=== PATIENT | female | born 1985 | race Asian ===

== ENCOUNTER 2020-12-18 10:58 | Outpatient (CLI) | payer BC | END 2020-12-18 10:59 | disposition home or self-care (01) | LOC: CSHULT 10:58 | PROVIDERS: ATTEND Family Medicine | DX: Z34.82 Encounter for supervision of other normal pregnancy, second trimester (principal) | CPT/HCPCS: 76805 ==

== ENCOUNTER 2021-04-15 23:39 | Inpatient (IN) | payer BC ==
[2021-04-16] MEDS ORDERED: Morphine 4 MG/ML VIAL SLOW IVP PRN (01:08)
[2021-04-16] MEDS ORDERED: hydrALAZINE 20 MG/ML VIAL SLOW IVP PRN ×3 (01:08→19:16)
[2021-04-16 01:31] VITALS: BMI 29.7
[2021-04-16] MEDS ORDERED: Zolpidem Tartrate 5 MG TAB PO SCH (02:00)
[2021-04-16] MEDS ORDERED: Penicillin G Potassium 5 MILL.UNITS in Sodium Chloride 0.9% 100 ML IVPB SCH (02:00)
[2021-04-16] MEDS ORDERED: Lidocaine 1% (PF) 30 ML VIAL SC PRN (03:54)
[2021-04-16] MEDS ORDERED: Ondansetron PF 4 MG/2 ML Vial IVP PRN ×3 (03:54→19:16)
[2021-04-16] MEDS ORDERED: HYDROcodone/Acetaminophen 5/325 mg Tablet PO PRN ×2 (03:54→19:16)
[2021-04-16] MEDS ORDERED: Butorphanol Tartrate 1 MG/ML VIAL SLOW IVP PRN (03:54)
[2021-04-16] MEDS ORDERED: Ibuprofen 800 MG TAB PO PRN (03:54)
[2021-04-16] MEDS ORDERED: NS w/ Oxytocin 30 units 500 ML IV SCH ×2 (04:00→19:16)
[2021-04-16] MEDS ORDERED: Lactated Ringer's 1,000 ML IV SCH (04:00)
[2021-04-16] MEDS ORDERED: Fentanyl 2 mcg/Bup 0.1% Cadd 100 ML ONE ×2 (05:47→14:30)
[2021-04-16 06:05] LABS: Hemoglobin 11.7 g/dL (12.0-15.5); Mean Corpuscular HGB CONC 32.8 g/dL (32.0-36.0); Mean Corpuscular Hemoglobin 28.4 pg (27.0-33.0); Mean Corpuscular Volume 86.7 fl (81.6-98.3); Mean Platelet Volume 11.6 fl (7.4-10.4); Platelet Count 167 10x3/uL (150-450); Red Blood Cell (RBC) Count 4.12 10x6/uL (3.90-5.03); White Blood Cell (WBC) Count 10.4 10x3/uL (3.5-10.5)
[2021-04-16 06:35] LABS: Hep B Surf Ag Non-Reactive S/CO (NonReactive); Syphilis Antibody Nonreactive (Nonreactive); Syphilis Antibody Index 0.02 S/CO (<1.00 Non-Reactive)
[2021-04-16] MEDS ORDERED: diphenhydrAMINE 50 MG/ML VIAL IVP PRN (06:35)
[2021-04-16] MEDS ORDERED: ePHEDrine Sulfate 50 MG/10 ML VIAL SLOW IVP PRN (06:35)
[2021-04-16] MEDS ORDERED: Acetaminophen 325 MG TAB PO PRN (06:35)
[2021-04-16] MEDS ORDERED: Naloxone HCl 0.4 mg/ml Vial IVP PRN ×2 (06:35)
[2021-04-16] MEDS ORDERED: Lactated Ringer's 500 ML IV PRN (06:35)
[2021-04-16] MEDS ORDERED: Hydrocerin (Eucerin) Cream 120 gm Jar TOP PRN (06:35)
[2021-04-16] MEDS ORDERED: Promethazine HCl 25 MG/ML VIAL IM PRN (06:35)
[2021-04-16 06:38] LABS: HBSAg Index 0.11 S/CO (0-0.99)
[2021-04-16] MEDS ORDERED: Fentanyl 2 mcg/Bupivacaine 0.1% Cassette 100 ML EPIDURAL SCH (06:45)
[2021-04-16] MEDS ORDERED: Communication Order-Pharmacy FS SCH (06:45)
[2021-04-16] MEDS: Lactated Ringer's 1,000 ML IV SCH ×2 (07:13→13:50)
[2021-04-16] MEDS: Penicillin G 2.5 MILL.units 2.5 MILL.UNITS in Premix Bag 1 BAG IVPB SCH ×3 (08:25→13:16)
[2021-04-16 18:41] LABS: SARS-CoV-2 PCR by NAA Not Detected (NotDetected)
[2021-04-16] MEDS ORDERED: Benzocaine-Menthol 82.5 ML CAN TOP PRN (19:16)
[2021-04-16] MEDS ORDERED: Lanolin Ointment 7 GM TUBE TOP PRN (19:16)
[2021-04-16] MEDS ORDERED: Boostrix 0.5 ML (Tdap) VIAL IM ONE (19:16)
[2021-04-16] MEDS ORDERED: Milk Of Magnesia 30 ML UDCUP PO PRN (19:16)
[2021-04-16] MEDS ORDERED: Bisacodyl 10 MG SUPP PR PRN (19:16)
[2021-04-16] MEDS ORDERED: diphenhydrAMINE 25 MG CAP PO PRN (19:16)
[2021-04-16] MEDS ORDERED: Preparation H Ointment 28 GM TUBE PR PRN (19:16)
[2021-04-16] MEDS: Ibuprofen 800 MG TAB PO SCH (21:34)
[2021-04-16] MEDS: Docusate Calcium (SURFAK) 240 MG CAP PO SCH (21:34)
[2021-04-17] MEDS: Penicillin G 2.5 MILL.units 2.5 MILL.UNITS in Premix Bag 1 BAG IVPB SCH (02:00)
[2021-04-17] MEDS: Ibuprofen 800 MG TAB PO SCH ×3 (05:24→21:43)
[2021-04-17] MEDS: Ferrous Sulfate 325 MG TAB PO SCH ×2 (07:15→08:13)
[2021-04-17] MEDS: Prenatal Vitamin 1 TAB PO SCH (08:18)
[2021-04-17] MEDS: Docusate Calcium (SURFAK) 240 MG CAP PO SCH ×2 (08:18→21:43)
[2021-04-18] MEDS: Ibuprofen 800 MG TAB PO SCH (05:16)
[2021-04-18] MEDS: Ferrous Sulfate 325 MG TAB PO SCH (07:37)
[2021-04-18 07:57] VITALS: BP 93/51; TEMP 98.5
[2021-04-18] MEDS: Prenatal Vitamin 1 TAB PO SCH (08:22)
[2021-04-18] MEDS: Docusate Calcium (SURFAK) 240 MG CAP PO SCH (08:22)
[2021-04-18] MEDS ORDERED: ePHEDrine Sulfate 50 MG/10 ML VIAL ONE (10:00)
== END 2021-04-18 12:05 | disposition home or self-care (01) | DRG 807 ==
LOC: CSHLD/OP 23:39 → CSHLD 04-16 04:45 → CSHPP 04-16 18:30
PROVIDERS: ADMIT Family Medicine; ATTEND Family Medicine
PROC: 10E0XZZ Delivery of Products of Conception, External Approach (ICD-10-PCS; principal; 2021-04-16)
PROC: 0HQ9XZZ Repair Perineum Skin, External Approach (ICD-10-PCS; 2021-04-16)
DX: O99.824 Streptococcus B carrier state complicating childbirth (principal); Z37.0 Single live birth; Z20.822 Contact with and (suspected) exposure to COVID-19; O70.0 First degree perineal laceration during delivery; Z3A.38 38 weeks gestation of pregnancy
CPT/HCPCS: 36415; 51702; 85027; 86780; 86850; 86900; 86901; 87340; 90715; 99285; J1200; J2405; J2540; J3490; U0003; U0005

== ENCOUNTER 2025-05-02 10:42 | Inpatient (IN) | payer BC ==
[2025-05-02] MEDS ORDERED: Ibuprofen 800 MG TAB PO PRN (11:21)
[2025-05-02] MEDS ORDERED: hydrALAZINE 20 MG/ML VIAL SLOW IVP PRN ×2 (11:21→20:25)
[2025-05-02] MEDS ORDERED: Lidocaine 1% (PF) 30 ML VIAL SC PRN (11:21)
[2025-05-02] MEDS ORDERED: Carboprost 250 MCG/ML AMP IM PRN (11:21)
[2025-05-02] MEDS ORDERED: Methylergonovine 0.2 MG/ML VIAL IM PRN (11:21)
[2025-05-02] MEDS ORDERED: Acetaminophen 500 MG TAB PO PRN (11:21)
[2025-05-02] MEDS ORDERED: Diphenoxylate HCl/Atropine Tablet PO PRN (11:21)
[2025-05-02] MEDS ORDERED: Tranexamic Acid 1,000 MG/10 ML VIAL IVP PRN (11:21)
[2025-05-02] MEDS ORDERED: Ondansetron PF 4 MG/2 ML Vial IVP PRN ×2 (11:21→20:25)
[2025-05-02] MEDS ORDERED: Oxytocin 30 units/NS 500 ML 500 ML IV SCH ×2 (11:30)
[2025-05-02 11:35] VITALS: BMI 30.2
[2025-05-02] MEDS: Penicillin G Potassium 5 MILL.UNITS in Sodium Chloride 0.9% 100 ML IVPB SCH (11:47)
[2025-05-02 12:09] LABS: Hematocrit 34.6 % (34.9-44.5); Hemoglobin 11.4 g/dL (12.0-15.5); Mean Corpuscular Hemoglobin 28.4 pg (27.0-33.0); Mean Corpuscular Volume 86.1 fL (81.6-98.3); Platelet Count 187 10x3/uL (150-450); Red Blood Cell (RBC) Count 4.02 10x6/uL (3.90-5.03); White Blood Cell (WBC) Count 9.12 10x3/uL (3.5-10.5)
[2025-05-02 12:47] LABS: Hep B Surf Ag - L&D Non-Reactive S/CO (NonReactive)
[2025-05-02 12:49] LABS: Syphilis Antibody Index 0.04 S/CO (<1.00 Non-Reactive)
[2025-05-02] MEDS: Penicillin G 2.5 MILL.units 2.5 MILL.UNITS in Premix 1 BAG IVPB SCH (15:32)
[2025-05-02] MEDS: HYDROcodone/Acetaminophen 5/325 mg Tablet PO PRN (18:33)
[2025-05-02] MEDS ORDERED: diphenhydrAMINE 25 MG CAP PO PRN (20:25)
[2025-05-02] MEDS ORDERED: Bisacodyl 10 MG SUPP PR PRN (20:25)
[2025-05-02] MEDS ORDERED: HYDROcodone/Acetaminophen 5/325 mg Tablet PO PRN (20:25)
[2025-05-02] MEDS ORDERED: Milk Of Magnesia 30 ML UDCUP PO PRN (20:25)
[2025-05-02] MEDS ORDERED: Benzocaine-Menthol 82.5 ML CAN TOP PRN (20:25)
[2025-05-02] MEDS ORDERED: Lanolin Ointment 7 GM TUBE TOP PRN (20:25)
[2025-05-02] MEDS: Ibuprofen 800 MG TAB PO SCH (21:35)
[2025-05-02] MEDS: Ferrous Sulfate 325 MG TAB PO SCH (21:35)
[2025-05-03] MEDS: Boostrix 0.5 ML (Tdap) VIAL (>/=7 yrs of age) IM ONE (07:13)
[2025-05-03] MEDS: Ferrous Sulfate 325 MG TAB PO SCH (07:13)
[2025-05-04 08:34] VITALS: BP 121/62; TEMP 97.8
== END 2025-05-04 17:25 | disposition home or self-care (01) | DRG 807 ==
LOC: CSHLD 10:42 → CSHPP 19:35
PROVIDERS: ADMIT Family Medicine; ATTEND Family Medicine
PROC: 10E0XZZ Delivery of Products of Conception, External Approach (ICD-10-PCS; principal; 2025-05-02)
PROC: 10907ZC Drainage of Amniotic Fluid, Therapeutic from Products of Conception, Via Natural or Artificial Opening (ICD-10-PCS; 2025-05-02)
DX: O99.824 Streptococcus B carrier state complicating childbirth (principal); Z37.0 Single live birth; O69.81X0 Labor and delivery complicated by cord around neck, without compression, not applicable or unspecified; Z3A.37 37 weeks gestation of pregnancy
CPT/HCPCS: 36415; 85027; 86780; 86850; 86900; 86901; 87340; J2540